=== PATIENT | male | born 1990 | race Caucasian/White ===

== ENCOUNTER 2020-03-11 15:51 | Emergency (ER) | payer OTHER ==
[~2020-03-11] VITALS: Ht 177.8 cm; Wt 92.7 kg
[2020-03-11 15:52] VITALS: BP 136/93
== END 2020-03-11 16:25 | disposition home or self-care (01) ==
LOC: ED 16:19
DX: U07.1 COVID-19 (principal); B34.9 Viral infection, unspecified; R51.9 Headache, unspecified; F17.210 Nicotine dependence, cigarettes, uncomplicated
CPT/HCPCS: 87635; 99283; 99406

== ENCOUNTER 2020-03-22 11:45 | Emergency (ER) | payer OTHER ==
[~2020-03-22] VITALS: Ht 177.8 cm; Wt 95.0 kg
[2020-03-22 11:57] VITALS: BP 120/75
== END 2020-03-22 12:17 | disposition home or self-care (01) ==
LOC: ED 12:05
DX: Z00.00 Encounter for general adult medical examination without abnormal findings (principal); Z20.828 Contact with and (suspected) exposure to other viral communicable diseases
CPT/HCPCS: 87635; 99283

== ENCOUNTER 2020-05-23 08:40 | Emergency (ER) | payer SELFPAY ==
[~2020-05-23] VITALS: Ht 177.8 cm; Wt 95.5 kg
[2020-05-23 08:48] VITALS: BP 136/89
--- NOTE | 2020-05-23 09:20 | NUR ---
report from [facility]IVE[facility]. Hiram swab obtained and walked to the lab.
--- NOTE | 2020-05-23 09:58 | NUR ---
Patient/Caregiver given discharge instructions and they have confirmed that they understand the instructions. Patient ambulatory with steady gait.
== END 2020-05-23 09:59 | disposition home or self-care (01) ==
LOC: ED 09:03
DX: B34.9 Viral infection, unspecified (principal); Z20.822 Contact with and (suspected) exposure to COVID-19; J02.9 Acute pharyngitis, unspecified; R11.2 Nausea with vomiting, unspecified; R09.81 Nasal congestion; H92.02 Otalgia, left ear
CPT/HCPCS: 87635; 99283